=== PATIENT | female | born 1930 | race Caucasian/White ===

== ENCOUNTER 2016-10-03 12:39 | Inpatient (IN) | payer OTHER ==
--- NOTE | ~2016-10-03 | DS ---
Discharge Summary [id number] [place]. [address] NAME: JACKELINE SCHULTZ : 34 STATUS : DIS IN PAT#: [id number] AGE: 85 ADM/REG DATE : 10/03/16 MR#: [id number] REPORT SERV DATE: 10/14/16 DICTATED BY: DOYLE SALDIVAR DATE: 10/13/16 REPORT STATUS : Draft TRANSCRIBED BY: MODSara DATE: 10/13/16 Data Collection from hospitalization DISCHARGE DIAGNOSES: 1. Hyperkalemia. 2. Sepsis. 3. Pneumonia. 4. Respiratory failure/elevated CO2. 5. Congestive heart failure-not compensatory. 6. Acute kidney injury/chronic kidney disease-worsening. 7. Atrial fibrillation/controlled ventricular response. 8. Hypertension. 9. Chronic obstructive pulmonary disease. 10.Gastroesophageal reflux disease. 11.Anemia. 12.Rheumatoid arthritis. 13.Depression and anxiety. 14.Generalized debility. CONSULTATIONS: None. PROCEDURES PERFORMED: None. DISPOSITION: [facility]. HOSPITAL COURSE: This is an 85-year-old female who presented from [facility] with pneumonia. She was exhibiting hypoxia and an altered mental status at the facility and was sent to the emergency room where it was confirmed that she had pneumonia and severely elevated CO2, severe dehydration, and multiple other chronic medical problems which had only gotten worse recently. She was admitted to the hospital at this time for further evaluation and treatment. Upon admission, her white blood cell count was 13,000, troponin was 0.07. Creatinine level was 4.71. She was felt to have sepsis on admission probably due to pneumonia. There was pneumonia as evidenced by left pleural fluid and left basilar atelectasis and elevated white count. The patient has acute kidney injury with chronic kidney disease as well as atrial fibrillation with controlled heart rate. She was on electrolyte protocol with close monitoring of her elevated potassium. Oxygen supplementation was provided. She remained a DNR code status with limited intervention. The following day, she did respond some. She did have some pain and anxiety. Potassium level was 5.9. BUN and creatinine were elevated. On the , she was less alert. She was in less distress. White count was now 7.2. Creatinine level was 4.88. Zithromax was continued. We were going to try insulin/D50. A long discussion was held with the patient's son and our focus was going to be on comfort care. Her condition continued to decline. In the time recorder hours of 10/06/2016, she was found without blood pressure, pulse, or respirations. She was pronounced at 4 a.m. and released to the above-mentioned home. Information collected by: Leatha Bowden Discharge Summary [address] [address] NAME: JACKELINE SCHULTZ : 34 STATUS : DIS IN PAT#: [id number] AGE: 85 ADM/REG DATE : 10/03/16 MR#: [id number] REPORT SERV DATE: 10/14/16 DICTATED BY: DOYLE SALDIVAR DATE: 10/13/16 REPORT STATUS : Draft TRANSCRIBED BY: SHAYAN DATE: 10/13/16 I submit the above information as my discharge summary. CANDI/SHAYAN Doyle Saldivar M.D. / [id number] CC: Sole Hutchison M.D.
--- NOTE | ~2016-10-03 | HP ---
History And Physical [address] [place]. [address] NAME: JACKELINE SCHULTZ : 34 STATUS : ADM IN [facility]#: [id number] AGE: 85 ADM/REG DATE : 10/03/16 MR#: [id number] REPORT SERV DATE: 10/04/16 DICTATED BY: DOYLE SALDIVAR DATE: 10/04/16 REPORT STATUS : Draft TRANSCRIBED BY: MODL DATE: 10/04/16 DATE OF ADMISSION: 10/03/2016 CHIEF COMPLAINT: This is an 85-year-old female who presents from [facility] with pneumonia. HISTORY OF PRESENT ILLNESS: She was exhibiting hypoxia and altered mental status at the facility and was sent to the emergency room where it was confirmed that she had pneumonia and severely elevated CO2, severe dehydration, and multiple other chronic medical problems, which have only gotten worse recently. REVIEW OF SYSTEMS: She apparently had no fever or cough, but did have shortness of breath, nonproductive cough. No nausea, vomiting, diarrhea, or chills. PAST MEDICAL HISTORY: Significant for systolic congestive heart failure, atrial fibrillation, longstanding hypertension, chronic bronchitis, COPD, gastroesophageal reflux disorder, hip fracture with several infections related to hardware, longstanding anemia, prior history of dehydration, rheumatoid arthritis, depression, anxiety, generalized debility, and multiple hospital admissions including [facility], [facility], and [facility], ejection fraction in the 30s last year, and prior hospitalization for atrial fibrillation with rapid ventricular response. FAMILY HISTORY: High blood pressure, heart disease, and diabetes. SOCIAL HISTORY: with grown children. Apparently lived by herself until about a year ago. No alcohol, tobacco, or drug issues. HOME MEDICATIONS: Include Ventolin HFA 2 puffs every four hours as needed, albuterol nebulizer q.6 hours p.r.n., Zyloprim 300 mg daily, aspirin 81 mg daily, Coreg 3.125 mg daily, digoxin 0.125 mg daily, magnesium 400 mg daily, melatonin 3 mg nightly, Remeron 15 mg nightly, Colace 200 mg nightly, Prozac 20 mg daily, Lasix 20 mg daily, [place] 5/325 q.8 hours p.r.n., acidophilus tablet before breakfast and supper, Levaquin 500 mg daily, and Ativan 0.5 mg b.i.d. and p.r.n. ALLERGIES: INCLUDE PENICILLIN, CEPHALOSPORIN, RIFAMPIN, NIFEDIPINE, AND MORPHINE. PHYSICAL EXAMINATION: VITAL SIGNS: Blood pressure 103/48, temperature 97.8, pulse 56, respirations 20, and saturation 98%. GENERAL: She is drowsy, but arousable, and oriented to person only. Appears in no acute distress. SKIN: Pale, warm, and dry. HEAD AND NECK: Cranial nerves grossly intact except for hearing impairment. Poor dentition. Mucous membranes moist. Neck with fair range of motion. No mass. No JVD. CHEST: With wet rhonchi mostly in the bases but bilateral and with no wheezing. History And Physical [address] [address] NAME: JACKELINE SCHULTZ : 34 STATUS : ADM IN [facility]#: [id number] AGE: 85 ADM/REG DATE : 10/03/16 MR#: [id number] REPORT SERV DATE: 10/04/16 DICTATED BY: DOYLE SALDIVAR DATE: 10/04/16 REPORT STATUS : Draft TRANSCRIBED BY: SHAYAN DATE: 10/04/16 HEART: Regular rate with slightly irregular rhythm. No murmur. Weak peripheral pulses. ABDOMEN: Obese, supple, benign, nontender. No mass. Nondistended. GENITOURINARY: Deferred. RECTAL: Deferred. EXTREMITIES: 1+ ankle edema. Arthritic changes diffusely. NEUROLOGIC: Grossly intact to sensory and motor with no tremor, but too weak to sit up. LABORATORY DATA: WBC elevated at 13,000. Troponin 0.07. Sodium 136, potassium 5.9, BUN 118, creatinine 4.71, GFR 8. Arterial blood gas shows pH 7.09, pCO2 of 100, and pO2 of 282. IMPRESSION: 1. Sepsis on admission, probably due to pneumonia. 2. Pneumonia as evidenced by left pleural fluid and left basilar atelectasis and elevated white count. 3. Hypercapnic respiratory failure. 4. Chronic obstructive pulmonary disease with exacerbation. 5. Systolic congestive heart failure. 6. Acute kidney injury with chronic kidney disease. 7. Atrial fibrillation with controlled heart rate. 8. Multiple orthopedic issues including prosthesis replacements after hip fracture and hardware infection. PLAN: She is on electrolyte protocol with close monitoring of the elevated potassium. Oxygen supplementation. Continued the DNR with limited intervention, reiterated by her son who was in the room with her at the time of the exam. Fluid replacement and close monitoring of urine output, and I explained to her family the risk of the fluid balance issue of kidney versus heart, and we will continue antibiotic coverage for probable sepsis, and the family seems fairly realistic about the possibility that she may not leave the hospital alive, and we will be focusing on comfort care as well as fixing any problems that are treatable. BP/MODL Doyle Saldivar M.D. / [id number] CC: Fernando Randolph M.D. UNKNOWN
[~2016-10-03 12:39] MED LIST: ACCU20 PO; ACCU5 PO; ACET500CAP PO; ASAB PO; ATV.5 PO; ATV1 PO; AVELOX400 PO; BACDS PO; C2 PO; CENTRUM PO; CENTRUM TAB1 TAB PO; COREG3 PO; DCN100 PO; DSS PO; FESO4 PO; FOLIC PO; HALF81 PO; IRON325 MG PO; K500 PO; KDUR10 PO; KLOR-CON M1010 MEQ PO; L20 PO; LAN125 PO; LEVAQUIN5T PO; LORTAB 5 PO; MAGOX4 PO; MICRO-K10 MEQ PO; MULTIPLE VIT PO; MULTIVIT/MIN PO; NORCO1 TA1 PO; NORCO1 TA2 PO; PRILOSEC40 MG PO; PROZAC PO; SEPTRA DS1 TAB PO; STRESS600T PO; TAPAZOLE5 MG PO; TESS PO; TOPXL25 PO; TOPXL50 PO; TYLENOL PM PO; UNABLE TO RECALL; VENTOLIN HFA INH; VIB100 PO; VOLTAREN1 % TOP; Z300 PO; ZOFRAN4 PO; [UNRECOGNIZED DRUG - REMARK] PO
[2016-10-03 13:46] LABS: BUN (BLOOD UREA NITROGEN) 118 MG/DL (6-23); CALCIUM, SERUM 7.9 MG/DL (8.5-10.4); CHEST PAIN PROFILE TAT 0 Hrs 21 Mins; CHLORIDE, SERUM 98 MMOL/L (96-112); CO2 (CARBON DIOXIDE) 28 MMOL/L (24-34); CREATININE 4.71 MG/DL (0.55-1.02); GFR AFRICAN AMERICAN 9 ML/MIN (>=60); GFR NON AFRICAN AMERICAN 8 ML/MIN (>=60); GLUCOSE, SERUM 115 MG/DL (60-99); SODIUM, SERUM 136 MMOL/L (135-148); TROPONIN I 0.07 NG/ML (<0.05)
[2016-10-03 13:47] LABS: POTASSIUM, SERUM 5.9 MMOL/L (3.5-5.3)
[2016-10-03 13:57] LABS: ALLENS TEST Pos; BE (BASE EXCESS) -2.5 MEQ/L (0 +/- 2.5); CARBOXYHEMOGLOBIN 1.3 % (0-3); HCO3 (ACTUAL BICARBONATE) 29.6 MEQ/L (23-27); INSTRUMENT SERIAL # 8087; METHEMOGLOBIN 0.4 % (0-3); O2 CONTENT 17.2 VOL% (18-24); OPERATOR ID 14335; PCO2 (CO2 TENSION) 100 MMHG (35-45); PO2 (O2 TENSION) 282 MMHG (79-93); SAMPLE Arterial; pH 7.09 (7.37-7.43)
[2016-10-03] MEDS ORDERED: MELA3 PO (14:24)
[2016-10-03] MEDS ORDERED: DSS PO (14:25)
[2016-10-03] MEDS ORDERED: REM15 PO (14:25)
[2016-10-03] MEDS ORDERED: LEVAQUIN5T PO (14:26)
[2016-10-03] MEDS ORDERED: ACIDOPHILU2 PO (14:28)
[2016-10-03] MEDS ORDERED: ALBUTEROL0.083 % INH (14:31)
[2016-10-03] MEDS ORDERED: ATV.5 PO (14:32)
[2016-10-03 14:35] LABS: BASOPHILS 0.2 %; BASOPHILS ABSOLUTE 0.03 10/3/uL (0.0-0.16); EOSINOPHILS 0 %; IMMATURE GRANULOCYTES 1.3 %; IMMATURE GRANULOCYTES ABSOLUTE 0.17 10/3/uL (0.0-0.11); LYMPHOCYTES ABSOLUTE 0.93 10/3/uL (0.67-4.30); MEAN CORPUS HGB CONC 28.5 g/dL (32.0-36.0); MEAN CORPUSCULAR HEMOGLOB 27.6 pg (26.0-34.0); MEAN CORPUSCULAR VOLUME 96.8 fL (80-100); MONOCYTES 1.8 %; MONOCYTES ABSOLUTE 0.24 10/3/uL (0.21-1.20); NEUTROPHILS 89.7 %; NEUTROPHILS ABSOLUTE 11.93 10/3/uL (2.02-8.40); NUCLEATED RED BLOOD CELLS 2.5 /100WBC (0-0); PLATELET COUNT 209 10/3/uL (150-400); RBC DISTRIBUTION WIDTH 16.8 % (12.0-16.0)
[2016-10-03 14:39] LABS: ER CBC TAT 0 Hrs 18 Mins; HEMATOCRIT 39.7 % (36.0-48.0); HEMOGLOBIN 11.3 g/dL (12.0-16.0); MANUAL DIFF NO %; WHITE BLOOD CELLS 13.3 10/3/uL (4.5-10.5)
[2016-10-04 00:28] LABS: INTERNATIONAL NORMAL RATI 1.1 UNITS (-)
[2016-10-04 00:29] LABS: PARTIAL THROMBO TIME 29.2 SEC (22.5-37.2)
[2016-10-04 06:39] LABS: HEMATOCRIT 36.2 % (36.0-48.0); HEMOGLOBIN 10.4 g/dL (12.0-16.0); MEAN CORPUS HGB CONC 28.7 g/dL (32.0-36.0); MEAN CORPUSCULAR HEMOGLOB 27.5 pg (26.0-34.0); MEAN CORPUSCULAR VOLUME 95.8 fL (80-100); MEAN PLATELET VOLUME 11.7 fL (9.2-13.0); NUCLEATED RED BLOOD CELLS 5.8 /100WBC (0-0); PLATELET COUNT 232 10/3/uL (150-400); RBC DISTRIBUTION WIDTH 16.9 % (12.0-16.0); RED CELL COUNT 3.78 10/6/uL (4.0-5.6)
[2016-10-04 06:40] LABS: MANUAL DIFF YES %; WHITE BLOOD CELLS 6.2 10/3/uL (4.5-10.5)
[2016-10-04 06:57] LABS: A/G RATIO 0.7 (0.7-1.9); ALBUMIN 2.9 G/DL (3.5-5.0); ALKALINE PHOSPHATASE 103 U/L (45-117); BUN (BLOOD UREA NITROGEN) 119 MG/DL (6-23); CALCIUM, SERUM 7.7 MG/DL (8.5-10.4); CHLORIDE, SERUM 104 MMOL/L (96-112); CO2 (CARBON DIOXIDE) 20 MMOL/L (24-34); CREATININE 4.73 MG/DL (0.55-1.02); GFR AFRICAN AMERICAN 9 ML/MIN (>=60); GFR NON AFRICAN AMERICAN 8 ML/MIN (>=60); GLUCOSE, SERUM 115 MG/DL (60-99); SGOT(AST) 12 U/L (5-40); SGPT(ALT) 12 U/L (5-65); SODIUM, SERUM 138 MMOL/L (135-148); TOTAL PROTEIN 6.9 G/DL (6.0-8.5)
[2016-10-04 07:06] LABS: BAND NEUTROPHILS 1 %; LYMPHOCYTES 10 %; LYMPHOCYTES ABSOLUTE (CALC) 0.62 10/3/uL (0.67-4.30); NEUTROPHILS ABSOLUTE (CALC) 5.58 10/3/uL (2.02-8.40); PLATELET ESTIMATE ADQ (ADEQUATE); RBC MORPHOLOGY NORM (NORMAL); SEGMENTED NEUTROPHIL (0) 89 %; TOTAL NUCLEATED CELLS 100
[2016-10-04 09:53] LABS: ALLENS TEST Pos; BE (BASE EXCESS) -6.7 MEQ/L (0 +/- 2.5); CARBOXYHEMOGLOBIN 0.9 % (0-3); HCO3 (ACTUAL BICARBONATE) 22.4 MEQ/L (23-27); HEMOBLOGIN CONTENT 10.9 G/DL (12-16); INSTRUMENT SERIAL # 8083; METHEMOGLOBIN 0.2 % (0-3); O2 CONTENT 14.2 VOL% (18-24); PCO2 (CO2 TENSION) 64 MMHG (35-45); PO2 (O2 TENSION) 69 MMHG (79-93); SAMPLE Arterial; pH 7.17 (7.37-7.43)
[2016-10-04 13:24] LABS: CALCIUM, SERUM 7.6 MG/DL (8.5-10.4); CHLORIDE, SERUM 105 MMOL/L (96-112); CO2 (CARBON DIOXIDE) 24 MMOL/L (24-34); CREATININE 4.71 MG/DL (0.55-1.02); GFR AFRICAN AMERICAN 9 ML/MIN (>=60); GFR NON AFRICAN AMERICAN 8 ML/MIN (>=60); GLUCOSE, SERUM 104 MG/DL (60-99); SODIUM, SERUM 140 MMOL/L (135-148)
[2016-10-04 13:25] LABS: BUN (BLOOD UREA NITROGEN) 122 MG/DL (6-23)
[2016-10-05 04:35] LABS: HEMATOCRIT 32.8 % (36.0-48.0); HEMOGLOBIN 9.3 g/dL (12.0-16.0); MEAN CORPUS HGB CONC 28.4 g/dL (32.0-36.0); MEAN CORPUSCULAR HEMOGLOB 26.9 pg (26.0-34.0); MEAN CORPUSCULAR VOLUME 94.8 fL (80-100); NUCLEATED RED BLOOD CELLS 5.9 /100WBC (0-0); PLATELET COUNT 245 10/3/uL (150-400); RBC DISTRIBUTION WIDTH 17.1 % (12.0-16.0); RED CELL COUNT 3.46 10/6/uL (4.0-5.6); WHITE BLOOD CELLS 7.2 10/3/uL (4.5-10.5)
[2016-10-05 04:40] LABS: MANUAL DIFF YES %
[2016-10-05 04:48] LABS: CALCIUM, SERUM 8.1 MG/DL (8.5-10.4); CHLORIDE, SERUM 108 MMOL/L (96-112); CREATININE 4.88 MG/DL (0.55-1.02); GFR AFRICAN AMERICAN 9 ML/MIN (>=60); GFR NON AFRICAN AMERICAN 8 ML/MIN (>=60); GLUCOSE, SERUM 102 MG/DL (60-99); SODIUM, SERUM 140 MMOL/L (135-148)
[2016-10-05 04:50] LABS: CO2 (CARBON DIOXIDE) 19 MMOL/L (24-34); POTASSIUM, SERUM 6.2 MMOL/L (3.5-5.3)
[2016-10-05 04:51] LABS: BUN (BLOOD UREA NITROGEN) 131 MG/DL (6-23)
[2016-10-05 05:03] LABS: ANISOCYTOSIS 1+ (5-10/OIF) (0-5/OIF); BAND NEUTROPHILS 3 %; IMMATURE GRANS ABSOLUTE (CALC) 0.22 10/3/uL (0.0-0.11); LYMPHOCYTES 18 %; METAMYELOCYTES 3 %; MONOCYTES 3 %; MONOCYTES ABSOLUTE (CALC) 0.22 10/3/uL (0.21-1.20); NEUTROPHILS ABSOLUTE (CALC) 5.47 10/3/uL (2.02-8.40); PLATELET ESTIMATE ADQ (ADEQUATE); SEGMENTED NEUTROPHIL (0) 73 %; TOTAL NUCLEATED CELLS 100
[2016-10-05 05:04] LABS: BURR CELLS 1+ (3-10/OIF) (0-2/OIF); POIKILOCYTOSIS 1+ (5-10/OIF) (0-5/OIF); POLYCHROMASIA 1+ (2-5/OIF) (0-1/OIF)
[2016-10-05 05:05] LABS: SCHISTOCYTES OCC (0-2/OIF)
== END 2016-10-06 04:00 | disposition expired | DRG 871 ==
LOC: ER 12:39 → 4SO 14:24
PROVIDERS: Emergency Medicine; Family Medicine
DX: A41.9 Sepsis, unspecified organism (principal); J18.1 Lobar pneumonia, unspecified organism; J96.92 Respiratory failure, unspecified with hypercapnia; N17.9 Acute kidney failure, unspecified; I50.23 Acute on chronic systolic (congestive) heart failure; I11.0 Hypertensive heart disease with heart failure; I50.22 Chronic systolic (congestive) heart failure; J44.0 Chronic obstructive pulmonary disease with (acute) lower respiratory infection; J44.1 Chronic obstructive pulmonary disease with (acute) exacerbation; J98.11 Atelectasis; Z51.5 Encounter for palliative care; Z66 Do not resuscitate; E86.0 Dehydration; I48.2 Chronic atrial fibrillation; K21.9 Gastro-esophageal reflux disease without esophagitis; Z87.81 Personal history of (healed) traumatic fracture; Z79.82 Long term (current) use of aspirin; Z79.891 Long term (current) use of opiate analgesic; Z88.0 Allergy status to penicillin; Z88.1 Allergy status to other antibiotic agents; Z88.5 Allergy status to narcotic agent; R65.20 Severe sepsis without septic shock; Z96.649 Presence of unspecified artificial hip joint; E87.5 Hyperkalemia
CPT/HCPCS: 36600; 71010; 80048; 80053; 82805; 82962; 83735; 84132; 84484; 85025; 85610; 85730; 87040; 93005; 94640; 96374; 99285; A9270-GY; J0456; J1170; P9047